=== PATIENT | male | born 1990 | race Caucasian/White ===

== ENCOUNTER 2021-04-09 21:20 | Emergency (ER) | payer OTHER, SELFPAY ==
[2021-04-09 21:46] VITALS: BP 136/86; PULSE 76; RESP 18; TEMP 36.9; O2SAT 99
[2021-04-10 00:09] VITALS: BP 137/90; PULSE 77; RESP 18; TEMP 36.8; O2SAT 100
--- NOTE | 2021-04-10 00:27 | ED_ITS ---
HPI - Dental/Oral General Chief complaint: Dental/Oral Stated complaint: dental pain Time Seen by Provider: 04/10/21 00:25 Source: RN notes reviewed History of Present Illness HPI Narrative: Patient presents emergency room from home for left lower dental pain. He states that the tooth is chipped and has been chipped for several years but the pain began approximately 3 to 4 days ago. He denies any new trauma or injury states that the tooth is eroded down to the gum states he has been trying to take Tylenol and ibuprofen at home with no relief he denies any fevers or chills states he does not have a dentist not seen a dentist states he is allergic to penicillin Related Data Allergies Allergy/AdvReac Type Severity Reaction Status Date / Time Penicillins AdvReac Hives Verified 04/10/21 00:13 Review of Systems Review of Systems: Gen.: Denies fevers or chills HEENT: See HPI Respiratory: Denies shortness of breath Neuro: Denies numbness, tingling, weakness Skin: Denies rash Endo: Denies DM PMFSH Past Medical History Medical History (Updated 04/10/21 @ 00:29 by Samuel Orantes DO) Patient denies significant medical history Social History Social History (Updated 04/10/21 @ 00:28 by Samuel Orantes DO) Smoking status: Never smoker Gender identity (if verbalized by the patient): Male Exam Narrative: APPEARANCE: No acute distress, nontoxic, resting in bed HEENT: Normocephalic, atraumatic, TMs clear bilaterally, nares patent, oral mucosa moist, airway patent, tooth #18 is carious down to the gum there is mild erythema with no fluctuance of the gum no overlying swelling of the jaw in this region RESPIRATORY: No respiratory distress MUSCULOSKELETAl: Moves all extremities. NEURO: Awake and alert. Following commands, speech normal, no focal deficits SKIN:: Warm, dry. Normal Color PSYCHIATRIC: Normal affect/mood Course Course Emergency Course: Discussed with patient results of workup and diagnosis. Discussed need for follow-up with primary care, proper use of medication, and reasons to return to the emergency department. Patient understands and agrees to current treatment plan Vital Signs Vital signs: Vital Signs Temperature 98.5 F 04/09/21 21:46 Pulse Rate 76 04/09/21 21:46 Respiratory Rate 18 04/09/21 21:46 Blood Pressure 136/86 04/09/21 21:46 Pulse Oximetry 99 04/09/21 21:46 Temperature 98.3 F 04/10/21 00:09 Pulse Rate 77 04/10/21 00:09 Respiratory Rate 18 04/10/21 00:09 Blood Pressure 137/90 04/10/21 00:09 Pulse Oximetry 100 04/10/21 00:09 Discharge Plan Discharge Clinical Impression: Dental caries, Odontalgia Patient Disposition: Home, Self-Care Condition: Stable Instructions: Antibiotic Form, Toothache (ED) Additional Instructions: Return for increasing pain fever or any other symptoms of concern Prescriptions: New ibuprofen [IBU] 600 mg tablet 600 mg PO Q6H PRN (Reason: pain) Qty: 20 RF: 0 clindamycin HCl 300 mg capsule 300 mg PO Q8H 10 Days Qty: 30 RF: 0 Follow-up/Referrals: [facility] [place] [Outside] - [address] [facility] [Outside] - 2 Days UNKNOWN,DOCTOR [Primary Care Provider] - Stand Alone Forms: Work/School Release IP Time of Disposition
[2021-04-10] MEDS: CLINDAMYCIN HCL 150 MG CAP 300 MG PO (01:05)
[2021-04-10] MEDS: HYDROcodone/acetaminophen (*CRX) 5-325 MG TABLET 1 TAB PO (01:05)
== END 2021-04-10 01:06 | disposition home or self-care (01) ==
PROVIDERS: Emergency Provider Emergency Medicine
DX: K02.9 Dental caries, unspecified (principal)
CPT/HCPCS: 99283; A9270

== ENCOUNTER 2021-07-28 09:55 | Emergency (ER) | payer OTHER, SELFPAY ==
--- NOTE | 2021-07-28 10:06 | PC.NURSE ---
Dr. Vazquez at bedside for pt assessment.
[2021-07-28 10:12] VITALS: BP 169/100; PULSE 86; RESP 16; TEMP 35.5; O2SAT 96
--- NOTE | 2021-07-28 10:38 | ED.DENTAL ---
HPI - Dental/Oral General Chief complaint: Dental/Oral Stated complaint: infected tooth Time Seen by Provider: 07/28/21 10:04 History of Present Illness HPI Narrative: Patient is a 30-year-old male who presents the ER with dental pain. Tooth #17. Has a fracture at the base of it. Developing pain going into his ear over the last day. Unsure if he has had any drainage. No facial swelling. Worse with eating and drinking. He has several chronically fractured teeth related to a accident 1 year ago. Related Data Home Medications Medication Instructions Recorded Confirmed levetiracetam PO 07/28/21 Allergies Allergy/AdvReac Type Severity Reaction Status Date / Time Penicillins AdvReac Hives Verified 07/28/21 10:11 Review of Systems Review of Systems: All systems reviewed & are unremarkable except as noted in HPI and below Constitutional: Constitutional: Denies chills, Denies fever(s) and Denies weakness ENT: Denies dysphagia, Denies nasal congestion and Denies sore throat Comments: Dental pain Respiratory: Respiratory: Denies cough and Denies dyspnea Gastrointestinal: Gastrointestinal: Denies nausea and Denies vomiting PMF Past Medical History Medical History (Updated 07/28/21 @ 10:42 by Jose Luis Gonsales MD) Patient denies significant medical history Surgical History Surgical History (Updated 07/28/21 @ 10:41 by Jose Luis Gonsales MD) No history of previous surgery Social History Social History (Updated 04/10/21 @ 00:28 by Samuel Orantes DO) Smoking status: Never smoker Gender identity (if verbalized by the patient): Male Exam Narrative: GENERAL: Well-appearing, well-nourished, and in no acute distress. HEAD: Normocephalic, atraumatic. ENT: Mucous membranes moist. Poor dentition with fractured tooth #17 without facial swelling or drainable abscess. Tender to palpation. TMs normal bilaterally. NECK: Supple. NEURO: No focal deficits. Alert and oriented x3. PSYCH: Normal mood and affect. Course Course Emergency Course: Baxter for pain here and antibiotics for home. Discussed use of dental wax over the exposed area of gum/nerve. Vital Signs Vital signs: Vital Signs Temperature 96 F L 07/28/21 10:12 Pulse Rate 86 07/28/21 10:12 Respiratory Rate 16 07/28/21 10:12 Blood Pressure 169/100 H 07/28/21 10:12 Pulse Oximetry 96 07/28/21 10:12 Temperature 96 F L 07/28/21 10:12 Pulse Rate 86 07/28/21 10:12 Respiratory Rate 16 07/28/21 10:12 Blood Pressure 169/100 H 07/28/21 10:12 Pulse Oximetry 96 07/28/21 10:12 Discharge Plan Discharge Clinical Impression: Toothache Patient Disposition: Home, Self-Care Condition: Stable Instructions: Toothache (ED) Additional Instructions: You are likely developing infection of your tooth. Take the antibiotics as prescribed. Contact your dentist for tooth extraction. Use dental wax to help cover the fractured area and prevent discomfort. Prescriptions: New clindamycin HCl 300 mg capsule 300 mg PO Q8H 7 Days Qty: 21 RF: 0 No Action levetiracetam 750 mg tablet PO RF: 0 Follow-up/Referrals: PHYSICIAN NOT ON STAFF,NONSTAFF [Primary Care Provider] - 1 Week
[2021-07-28 10:48] VITALS: RESP 16
== END 2021-07-28 10:49 | disposition home or self-care (01) ==
PROVIDERS: Emergency Provider Emergency Medicine
DX: K08.89 Other specified disorders of teeth and supporting structures (principal)
CPT/HCPCS: 99283

== ENCOUNTER 2021-10-01 | Emergency (ER) | payer OTHER, SELFPAY ==
[2021-10-01 00:05] VITALS: BP 142/83; PULSE 85; RESP 18; TEMP 36.2; O2SAT 100
--- NOTE | 2021-10-01 01:13 | ED.URI ---
HPI - URI/Sore Throat General Chief Complaint: Upper Respiratory Infection Stated Complaint: URI Time Seen by Provider: 10/01/21 00:13 History of Present Illness HPI Narrative: 31-year-old male presents to the emergency room with complaints of chronic sinus congestion, postnasal drip, productive cough, and fullness in his face. Patient states he has taken Benadryl and [id number] counter Veda-Randolph with little to no relief. Denies dizziness lightheadedness. Reports occasional headaches. Related Data Home Medications Medication Instructions Recorded Confirmed levetiracetam PO 07/28/21 Allergies Allergy/AdvReac Type Severity Reaction Status Date / Time Penicillins AdvReac Hives Verified 07/28/21 10:11 Review of Systems Review of Systems: CONSTITUTIONAL: Denies fever, chills, or sweats. EYES: Denies visual changes, redness, or discharge. ENT: Reports rhinorrhea, sinus congestion. denies sore throat or otalgia. CARDIOVASCULAR: Denies chest pain, palpitations, or edema. RESPIRATORY: Denies cough or dyspnea. GASTROINTESTINAL: Denies abdominal pain, nausea, vomiting, or diarrhea. GENITOURINARY: Denies dysuria or hematuria. SKIN: Denies rash or itching. MUSCULOSKELETAL: Denies back pain, joint pain, or myalgia. NEUROLOGIC: Denies headache, numbness, dizziness, or weakness. PSYCHIATRIC: Denies anxiety or depression. [facility] Past Medical History Medical History Patient denies significant medical history Surgical History Surgical History No history of previous surgery Social History Social History Smoking status: Never smoker Gender identity (if verbalized by the patient): Male Exam Narrative: GENERAL: Well-appearing, well-nourished, and in no acute distress. HEAD: Normocephalic, atraumatic. EYES: PERRLA and EOMI. ENT: Clear rhinorrhea posterior pharynx mildly erythematous ethmoid and maxillary sinus tenderness TMs bulging with clear fluid NECK: Supple. No adenopathy or masses. No carotid bruits or JVD CHEST: Clear to auscultation. No respiratory distress. No wheezes rales or rhonchi HEART: Regular rate and rhythm. No murmur heard. Normal peripheral pulses. ABDOMEN: Soft, nontender, nondistended, normal active bowel sounds. EXTREMITIES: Normal range of motion. No edema. SKIN: Warm, dry, no rash. NEURO: No focal deficits. Alert and oriented x3. PSYCH: Normal mood and affect. Course Vital Signs Vital signs: Vital Signs Temperature 36.2 C L 10/01/21 00:05 Pulse Rate 85 10/01/21 00:05 Respiratory Rate 18 10/01/21 00:05 Blood Pressure 142/83 H 10/01/21 00:05 Pulse Oximetry 100 10/01/21 00:05 Temperature 36.2 C L 10/01/21 00:05 Pulse Rate 85 10/01/21 00:05 Respiratory Rate 18 10/01/21 00:05 Blood Pressure 142/83 H 10/01/21 00:05 Pulse Oximetry 100 10/01/21 00:05 MDM - URI/Sore Throat Differential Diagnosis Differential diagnosis: Likely upper respiratory infection and sinusitis Medical Records Attestation: I reviewed the patient's medical records. Discharge Plan Discharge Clinical Impression: Sinusitis Qualifiers: Sinusitis location: ethmoidal Chronicity: acute Recurrence: not specified as recurrent Qualified Code(s): J01.20 - Acute ethmoidal sinusitis, unspecified Upper respiratory infection Qualifiers: URI type: unspecified URI Qualified Code(s): J06.9 - Acute upper respiratory infection, unspecified Patient Disposition: Home, Self-Care Condition: Stable Instructions: Antibiotic Form, Sinusitis (ED) Additional Instructions: Push fluids. Follow-up with PCP as needed Prescriptions: New doxycycline monohydrate 100 mg capsule 100 mg PO BID Qty: 14 RF: 0 pseudoephedrine HCl [Sudafed] 30 mg tablet 30 mg PO Q4-6H PRN (Reason: nasal congestion) Qty: 20 RF: 0 flutica
[2021-10-01 01:45] VITALS: BP 112/71; PULSE 76; RESP 16; O2SAT 97
== END 2021-10-01 01:44 | disposition home or self-care (01) ==
PROVIDERS: Emergency Provider Nurse Practitioner Family
DX: J01.20 Acute ethmoidal sinusitis, unspecified (principal); J06.9 Acute upper respiratory infection, unspecified
CPT/HCPCS: 99283

== ENCOUNTER 2022-04-20 04:08 | Emergency (ER) | payer OTHER, SELFPAY ==
--- NOTE | ~2022-04-20 | CT_ITS ---
EXAMINATION: CT facial bones w con DATE: 04/20/2022 05:34 INDICATION: Left facial swelling. TECHNIQUE: Computed tomography (CT) of the facial bones and maxillofacial region was performed with 7 5 mL Omnipaque 350 intravenous contrast. Automated exposure control and iterative reconstruction tech [employer] were employed. The dose-length product was 412.08 mGy-cm. COMPARISON: None. FINDINGS: There is left cheek soft tissue swelling. There are mildly enlarged left submandibular and left high internal jugular chain lymph nodes. There is mild mucosal thickening in the paranasal sinus es. There is leftward deviation of the nasal septum. There are carious lesions of many of the teeth. Tooth 12 is broken and demonstrates periapical lucencies with breech of the lingual and buccal cortex of the alveolar process. There is a 8 x 3 mm subperiosteal abscess adjacent to the buccal cortex. To oth 5 is broken with periapical lucencies and breech of the buccal cortex of the alveolar process. To oth 17 demonstrates a carious lesion and periapical lucencies. IMPRESSION: 1. Extensive dental disease with 8 x 3 mm subperiosteal abscess adjacent to the buccal cortex of the alveolar process of tooth 12. 2. Mild left submandibular and high internal jugular chain lymphadenopathy, likely reactive. Reviewed, dictated and finalized at location A. IMPRESSION: 1. Extensive dental disease with 8 x 3 mm subperiosteal abscess adjacent to the buccal cortex of the alveolar process of tooth 12. 2. Mild left submandibular and high internal jugular chain lymphadenopathy, lik kamari reactive.
[2022-04-20 04:12] VITALS: BP 136/76; PULSE 84; RESP 18; TEMP 36.5; O2SAT 97
--- NOTE | 2022-04-20 04:37 | ED.DENTAL ---
HPI - Dental/Oral General Chief complaint: Dental/Oral Stated complaint: Left Side Facial Swelling Time Seen by Provider: 04/20/22 04:16 History of Present Illness HPI Narrative: This is a 31-year-old male with past medical history of dental caries, who presents emergency department complaining of left-sided facial pain and swelling for the past 2 days. He states several years ago he had a molar extracted in the left maxilla. He denies known laceration or irritation to the area. He complains of 8 out of 10 left-sided facial pain, spreading to the left cheek. He denies difficulty swallowing, difficulty breathing, headache, change/loss of vision, change/loss of hearing, weakness or numbness. Related Data Home Medications Medication Instructions Recorded Confirmed levetiracetam 750 mg tablet PO 07/28/21 Allergies Allergy/AdvReac Type Severity Reaction Status Date / Time Penicillins AdvReac Hives Verified 07/28/21 10:11 Review of Systems Review of Systems: CONSTITUTIONAL: Denies fever, chills, or sweats. EYES: Denies visual changes, redness, or discharge. ENT: Left side facial swelling denies rhinorrhea, congestion, sore throat, or otalgia. CARDIOVASCULAR: Denies chest pain, palpitations, or edema. RESPIRATORY: Denies cough or dyspnea. GASTROINTESTINAL: Denies abdominal pain, nausea, vomiting, or diarrhea. GENITOURINARY: Denies dysuria or hematuria. SKIN: Denies rash or itching. MUSCULOSKELETAL: Denies back pain, joint pain, or myalgia. NEUROLOGIC: Denies headache, numbness, dizziness, or weakness. PSYCHIATRIC: Denies anxiety or depression. PMFSH Past Medical History Medical History Patient denies significant medical history Surgical History Surgical History No history of previous surgery Social History Social History Smoking status: Never smoker Gender identity (if verbalized by the patient): Male Exam Narrative: GENERAL: Well-developed, well-nourished, appears uncomfortable HEAD: Mild, tender swelling over the left maxillary sinus noted. Otherwise normocephalic, atraumatic EYES: PERRLA and EOMI. ENT: Mild erythema and swelling noted over the prior extraction site of tooth #16, nares clear, no rhinorrhea or epistaxis. Mucous membranes moist. Oropharynx without tonsillar hypertrophy exudate or other lesions. Bilateral TMs pearly vitale nonbulging. No mastoid tenderness or swelling noted NECK: Supple. No adenopathy or masses. No carotid bruits or JVD CHEST: Clear to auscultation. No respiratory distress. No wheezes rales or rhonchi HEART: Regular rate and rhythm. No murmur heard. Normal peripheral pulses. ABDOMEN: Soft, nontender, nondistended, normal active bowel sounds. EXTREMITIES: Normal range of motion. No edema. SKIN: Warm, dry, no rash. NEURO: No focal deficits. Alert and oriented x3. PSYCH: Normal mood and affect. Course Course Emergency Course: 06:45 -CT face not concerning for deep space infection of the face and is consistent with dental abscesses. Reassessed patient, he states his pain is improved and he is comfortable with discharge discussed return emergency precautions including signs/symptoms of airway compromise and sepsis. The patient voiced understanding and is comfortable with the plan. All questions answered to his satisfaction. Vital Signs Vital signs: Vital Signs Temperature 97.7 F 04/20/22 04:12 Pulse Rate 84 04/20/22 04:12 Respiratory Rate 18 04/20/22 04:12 Blood Pressure 136/76 04/20/22 04:12 Pulse Oximetry 97 04/20/22 04:12 Oxygen Delivery Room Air 04/20/22 04:12 Temperature 97.7 F 04/20/22 04:12 Pulse Rate 84 04/20/22 04:12 Respiratory Rate 18 04/20/22 04:12 Blood Pressure 136/76 04/20/22 04:12 Pulse Oximetry 97 04/20/22 04:12 Oxygen Delivery Room Air
[2022-04-20] MEDS: CLINDAMYCIN 450 MG in DEXTROSE 5% IN WATER 50 ML 106 MG IVPB (05:37)
[2022-04-20] MEDS: KETOROLAC 30 MG/ML VIAL (*BKC) IV PUSH (06:23)
[2022-04-20 07:01] VITALS: PULSE 88; RESP 16; O2SAT 98
[2022-04-20 09:13] LABS: Estimated CRCL calculation 140 ml/min; Estimated Glomerular Filt Rate > 60
== END 2022-04-20 07:02 | disposition home or self-care (01) ==
PROVIDERS: Emergency Provider Preventive Medicine Aerospace Medicine
DX: K04.7 Periapical abscess without sinus (principal)
CPT/HCPCS: 70487; 96365; 96375; 99284; J0131; J1885; Q9967

== ENCOUNTER 2022-07-25 20:09 | Emergency (ER) | payer OTHER, SELFPAY ==
[2022-07-25 20:40] VITALS: BP 131/81; PULSE 74; RESP 16; TEMP 36.5; O2SAT 98
--- NOTE | 2022-07-25 21:11 | ED.GENADULT ---
HPI - General Adult General Chief complaint: Unspecified <MARIOLA Alcaraz Last Filed: 07/25/22 21:35> Stated complaint: nausea and vomiting - needs work excuse <MARIOLA Alcaraz Last Filed: 07/25/22 21:35> Time Seen by Provider: 07/25/22 20:48 <MARIOLA Alcaraz Last Filed: 07/25/22 21:35> Source: patient <MARIOLA Alcaraz Last Filed: 07/25/22 21:35> Mode of arrival: ambulatory <MARIOLA Alcaraz Last Filed: 07/25/22 21:35> Limitations: no limitations <MARIOLA Alcaraz Last Filed: 07/25/22 21:35> History of Present Illness HPI narrative: Patient is a 31 y/o male who presents to the ED requesting a work note. Patient reports he woke up this morning and developed nausea and vomiting. He had 4 episodes of emesis at home. He was unable to get a ride to the hospital at that time. He took a nap and woke up feeling better. He did call off work today due to symptoms and would like to have a work note. He denies any persistent nausea, abdominal pain, fevers, cough or cold symptoms, diarrhea, constipation, chest pain, difficulty breathing, urinary symptoms. He states he feels fine currently. He is not vaccinated for covid or flu. <MARIOLA Alcaraz Last Filed: 07/25/22 21:35> Related Data Home medications: Home Medications Medication Instructions Recorded Confirmed levetiracetam 750 mg tablet PO 07/28/21 <MARIOLA Alcaraz Last Filed: 07/25/22 21:35> Allergies/adverse reactions: Allergies Allergy/AdvReac Type Severity Reaction Status Date / Time Penicillins AdvReac Hives Verified 07/25/22 20:43 <MARIOLA Alcaraz Last Filed: 07/25/22 21:35> Review of Systems Review of Systems: CONSTITUTIONAL: Denies fever, chills, or sweats. EYES: Denies visual changes. ENT: Denies rhinorrhea, congestion, sore throat. CARDIOVASCULAR: Denies chest pain. RESPIRATORY: Denies cough or dyspnea. GASTROINTESTINAL: Reports N/V. Denies abdominal pain, constipation, or diarrhea. GENITOURINARY: Denies dysuria or hematuria. SKIN: Denies rash or itching. MUSCULOSKELETAL: Denies back pain, joint pain, or myalgia. NEUROLOGIC: Denies headache, numbness, or weakness. <Galilea Szymanski PA-C - Last Filed: 07/25/22 21:35> All systems reviewed & are unremarkable except as noted in HPI and below <Galilea Szymanski PA-C - Last Filed: 07/25/22 21:35> [facility] Past Medical History Medical History: Medical History Patient denies significant medical history <Galilea Szymanski PA-C - Last Filed: 07/25/22 21:35> Surgical History Surgical History: Surgical History No history of previous surgery <Galilea Szymanski PA-C - Last Filed: 07/25/22 21:35> Social History Social History: Social History Smoking status: Never smoker Gender identity (if verbalized by the patient): Male <Galilea Szymanski PA-C - Last Filed: 07/25/22 21:35> Exam Narrative: GENERAL: Well appearing, obese, non-toxic, in no acute distress. HEAD: Normocephalic, atraumatic. NECK: Supple. No adenopathy, no masses. RESPIRATORY: Airway patent, respirations nonlabored. Clear to auscultation bilaterally, no rales, rhonchi, wheezing. CARDIOVASCULAR: Regular rate and rhythm without murmurs, rubs, or gallops. Peripheral pulses 2+ and equal bilaterally. ABDOMINAL: Soft, nontender, nondistended, no hepatosplenomegaly. Normoactive BS. MUSCULOSKELETAL: Moves all extremities. Strength/ROM intact without gross deformities. SKIN: Warm, dry, normal color. No rashes. NEURO: A&O X3. Speech clear. Cranial nerves II-XII grossly intact. Steady gait. No ataxic movements. PSYCHIATRIC: Appropriate mood and affect. Normal interaction. <Rac
== END 2022-07-25 21:44 | disposition home or self-care (01) ==
PROVIDERS: Emergency Provider Emergency Medicine
DX: R11.2 Nausea with vomiting, unspecified (principal)
CPT/HCPCS: 99281

== ENCOUNTER 2023-09-28 12:53 | Emergency (ER) | payer OTHER, SELFPAY ==
[2023-09-28 12:55] VITALS: BP 156/93; PULSE 97; RESP 18; TEMP 37.7; O2SAT 100
--- NOTE | 2023-09-28 15:23 | PC.NURSE ---
Pt called x2 with no response.
== END 2023-09-28 15:23 | disposition left against medical advice (07) ==
DX: R05.9 Cough, unspecified (principal)
CPT/HCPCS: 99199

== ENCOUNTER 2023-10-04 18:50 | Inpatient (IN) | payer OTHER, SELFPAY ==
--- NOTE | ~2023-10-04 | XR_ITS ---
EXAMINATION: XR chest 2V DATE: 10/04/2023 19:34 INDICATION: Shortness of breath. TECHNIQUE: Frontal and lateral views of the chest were obtained. COMPARISON: None. FINDINGS: There are airspace opacities in left lower lobe, consistent with pneumonia. No pleural effu miri or pneumothorax. The heart size is normal. IMPRESSION: 1. Left lower lobe pneumonia. Reviewed, dictated and finalized at location E. VISION PRODUCTION CLERK
--- NOTE | 2023-10-04 18:51 | ECG_ITS ---
Measurements Intervals [place] Rate: 95 P: 37 ME: 123 QRS: 62 QRSD: 94 T: 19 QT: 350 QTc: 442 Interpretive Statements SINUS RHYTHM NONSPECIFIC T-WAVE ABNORMALITY NO PREVIOUS ECG AVAILABLE FOR COMPARISON Electronically Signed On 10-05-2023 12:30:33 [employer] by James Molina M.D.
[2023-10-04 18:58] VITALS: BP 142/76; PULSE 104; RESP 22; TEMP 35.9; O2SAT 90
[2023-10-04 19:05] VITALS: O2SAT 90
[2023-10-04 19:49] VITALS: O2SAT 90; O2SAT 95
[2023-10-04 19:52] VITALS: BP 126/98; PULSE 87; RESP 18; O2SAT 94
[2023-10-04 19:52] LABS: Basophils Percent Auto 0.3 % (0.2-1.2); Hematocrit 34.9 % (42.0-52.0); Hemoglobin 10.9 g/dL (14.0-18.0); Immature Granulocyte Percent A 6.2 % (0-0.5); Lymphocytes Absolute Auto 1.34 K/mm3 (0.9-3.2); Lymphocytes Percent Auto 11.9 % (18.3-44.2); Mean Corpuscular HGB Conc 31.2 g/dl (32-36); Mean Corpuscular Hemoglobin 26.2 pg (26-34); Mean Corpuscular Volume 83.9 fl (80-100); Mean Platelet Volume 9.6 fl (7.4-10.4); Monocytes Absolute Auto 0.8 K/mm3 (0.1-0.6); Monocytes Percent Auto 7.2 % (2.6-8.5); Neutrophils Absolute Auto 8.4 K/mm3 (1.3-6.7); Neutrophils Percent Auto 74.4 % (45.5-73.1); Platelet Count Result 260 k/mm3 (150-375); Red Blood Count 4.16 M/mm3 (4.6-6.20); Red Cell Distribution Width 13.9 % (11.5-14.5); White Blood Count 11.3 K/mm3 (4.5-10.0)
[2023-10-04 20:05] LABS: Alanine Aminotransferase 35 U/L (6-50); Alkaline Phosphatase 96 U/L (38-126); Anion Gap 12 mmol/L (8-16); Aspartate Amino Transferase 68 U/L (17-59); Bilirubin,Total 0.5 mg/dL (0.2-1.3); Blood Urea Nitrogen 22 mg/dL (9-20); Calcium 8.8 mg/dL (8.4-10.2); Carbon Dioxide 25 mmol/L (22-30); Chloride 106 mmol/L (98-107); Estimated Glomerular Filt Rate > 60; Glucose 133 mg/dL (65-110); Potassium 3.9 mmol/L (3.4-5.0); Sodium 143 mmol/L (137-145)
--- NOTE | 2023-10-04 20:13 | ED.SOB ---
HPI - SOB/Dyspnea General Chief Complaint: Shortness of Breath/Dyspnea Stated Complaint: SOB Time Seen by Provider: 10/04/23 20:10 Source: patient Mode of arrival: ambulatory Limitations: no limitations History of Present Illness HPI Narrative: This is a otherwise healthy 33-year-old male who presents with report of a diagnosed pneumonia. He states over the past 1 week she has been experiencing symptoms including weakness, fevers and cough. He notes he presented to to [facility] yesterday and was diagnosed with a pneumonia and he was subsequently admitted for IV antibiotics and that he required supplemental oxygen via nasal cannula. He did not feel he was being cared for appropriately at that facility so did leave AMA this morning around 9am and went home. he does not know if he received morning doses of antibiotics. He believes they might have been started but discontinued early when he left. He denies any underlying respiratory conditions. He states he recently quit smoking 2 weeks ago prior to that was a less than half pack per day smoker. No prior episodes of pneumonia. He is not generally on an H2 martínez/ PPI at baseline but states he was receiving one of these medications while hospitalized due to some symptoms. he notes that he had been having fevers ranging from 103? F to 104? F earlier in the week for which he has been taking Tylenol and Motrin which helped. He has not had any fevers for the past few days. His cough has been productive of sputum but nonbloody. He denies any lower extremity edema. He denies any nausea, vomiting, or diarrhea. He states he was tested for COVID, influenza, and RSV to she and tested negative. In addition, he states that there was concern that he might have a pulmonary embolism but that he underwent CT testing and this was negative by report. Related Data Home Medications Medication Instructions Recorded Confirmed tizanidine 4 mg tablet 4 mg PO BID 10/04/23 10/04/23 Allergies Allergy/AdvReac Type Severity Reaction Status Date / Time Penicillins AdvReac Hives Verified 10/04/23 19:03 [facility] Past Medical History Medical History Patient denies significant medical history Surgical History Surgical History No history of previous surgery Family History Family History (Updated 10/04/23 @ 23:26 by Owen Galindo RN) Mother COPD (chronic obstructive pulmonary disease) Social History Social History (Updated 10/04/23 @ 20:59 by Nora Carrera MD) Smoking packs per day: 0.5 Smoking cigarettes per day: 10.0 Smoking status: Former smoker Smoking end date: 09/13/23 Alcohol intake: never Substance use: never Do You Feel Safe in your Home?: Yes Lack of Transportation: No Lack of Food: Never True Current Housing: I Have Housing Concerned About Future Housing: No Difficulty Paying Gas/Electric Bills: No Difficulty Paying for Meds: No Currently Unemployed: No Education: Don't Know Difficulty w/ Childcare or Family Care: No Gender identity (if verbalized by the patient): Male Spiritual care concerns: No Exam Narrative: GENERAL: Well-appearing, well-nourished, and in no acute distress. HEAD: Normocephalic, atraumatic. EYES: Non injected, non icteric ENT: Nares clear, no rhinorrhea or epistaxis. NECK: Supple. CHEST: No respiratory distress. Nonlabored breathing with no accessory muscle usage. Nasal cannula in place. Patient does have some scattered expiratory wheezes appreciable on the right not on the left. HEART: Regular rate and rhythm. . ABDOMEN: Soft, nondistended. EXTREMITIES: Normal range of motion. No edema. SKIN: Warm, dry, no rash. NEURO: No focal deficits. Alert and oriented x3. PSYCH: Normal mood and affect. Course Vital Signs Vital signs: Vital Signs Temperature 96.7 F L
--- NOTE | 2023-10-04 20:46 | PM.IMHP ---
H&P: HPI History of Present Illness Date/Time: 10/04/23 20:46 Chief Complaint: sob Narrative: This is a 33-year-old male with known significant past medical history. Patient comes to the emergency room due to generalized malaise body aches and pains chills fevers cough productive of clear phlegm patient had been at to [facility] and had been diagnosed with left lower lobe pneumonia but he left and presented to our emergency room. Preliminary workup shows chest x-ray with left lower lobe pneumonia. EXAMINATION: XR chest 2V DATE: 10/04/2023 19:34 INDICATION: Shortness of breath. TECHNIQUE: Frontal and lateral views of the chest were obtained. COMPARISON: None. FINDINGS: There are airspace opacities in left lower lobe, consistent with pneumonia. No pleural effusion or pneumothorax. The heart size is normal. IMPRESSION: 1. Left lower lobe pneumonia. Review of Systems Review of Systems: pneumonia, generalized malaise, body aches and pains, fevers, chills, cough productive of clear phlegm Constitutional: Constitutional: Reports chills, Reports fatigue, Reports fever(s), Reports malaise and Reports poor appetite Eyes: Eyes: Denies change in vision ENT: Denies dysphagia and Denies odynophagia Cardiovascular: Cardiovascular: Denies chest pain, Denies radiating jaw, neck or arm pain and Denies palpitations Respiratory: Respiratory: Reports chest congestion, Reports cough, Reports dyspnea and Reports wheezing Gastrointestinal: Gastrointestinal: Denies abdominal pain, Denies dyspepsia, Denies diarrhea, Denies nausea and Denies vomiting Genitourinary: Genitourinary: Denies dysuria Musculoskeletal: Musculoskeletal: Reports myalgias and Denies arthralgias Integumentary/Breasts: Skin/Breast: Denies rash Neurologic: Denies focal weakness and Denies Sensory deficit (Neuro) Psychiatric: Psychiatric: Reports no additional psychiatric complaints and Reports as per HPI Endocrine: Endocrine: Denies cold intolerance, Denies flushing, Denies heat intolerance, Denies polyphagia, Denies polydipsia and Denies palpitations Hematologic/Lymphatic: Hematologic/Lymphatic: Reports no additional hematologic/lymphatic complaints and Reports as per HPI Allergic/Immunologic: Allergic/Immunologic: Reports no additional allergic/immunologic complaints and Reports as per HPI [facility] Past Medical History Medical History Patient denies significant medical history Surgical History Surgical History No history of previous surgery Family History Family History (Updated 10/04/23 @ 23:26 by Owen Galindo RN) Mother COPD (chronic obstructive pulmonary disease) Social History Social History (Updated 10/04/23 @ 20:59 by Nora Carrera MD) Smoking packs per day: 0.5 Smoking cigarettes per day: 10.0 Smoking status: Former smoker Smoking end date: 09/13/23 Alcohol intake: never Substance use: never Do You Feel Safe in your Home?: Yes Lack of Transportation: No Lack of Food: Never True Current Housing: I Have Housing Concerned About Future Housing: No Difficulty Paying Gas/Electric Bills: No Difficulty Paying for Meds: No Currently Unemployed: No Education: Don't Know Difficulty w/ Childcare or Family Care: No Gender identity (if verbalized by the patient): Male Spiritual care concerns: No Meds Home Medications and Allergies Home Medications Medication Instructions Recorded Confirmed Type acetaminophen 500 mg capsule 1,000 mg PO Q8H PRN fever or pain 04/20/22 10/04/23 Rx #60 caps tizanidine 4 mg tablet 4 mg PO BID 10/04/23 10/04/23 History Allergies Allergy/AdvReac Type Severity Reaction Status Date / Time Penicillins AdvReac Hives Verified 10/04/23 19:03 Vital Signs Vital Signs - 24 hr 10/04/23 18:58 10/04/23 19:05 10/04/23 19
[2023-10-04] MEDS: DOXYCYCLINE HYCLATE 100 MG TABLET PO (20:54)
[2023-10-04 21:16] LABS: Influenza A QL RT-PCR Negative (Negative); Influenza B QL RT-PCR Negative (Negative); RSV RNA, RT-PCR Negative (Negative); SARS-CoV-2 RNA PCR Negative (Negative)
[2023-10-04 23:20] VITALS: BP 146/98; PULSE 90; RESP 20; TEMP 35.7; O2SAT 94
--- NOTE | 2023-10-04 23:24 | ADMGEN ---
This patient, Vitaliy Pemberton, was admitted to [facility] Surg Room 326-01. Patient/family oriented to hospital policies and general routines including ID bracelet, bed and alarms, visiting hours, pain management, procedures, bathroom and other care routines, personal items, smoking policy, room service/diet, and visiting hours. Information on how to activate the Rapid Response Team has been discussed. Patient/Family are encouraged to report perceived risks to care and to ask questions if they do not understand what they are told or what they should do.
[2023-10-04 23:37] VITALS: O2SAT 97
[2023-10-05] VITALS (13 sets, daily range): BP systolic 114–139; BP diastolic 71–88; PULSE 57–88; RESP 16–20; TEMP 35.7–36.6; O2SAT 91–95
--- NOTE | 2023-10-05 02:56 | PC.NURSE ---
Pt records from [facility] placed in paper chart.
--- NOTE | 2023-10-05 08:03 | P.PNIM_ITS ---
Progress Note: A&P Assessment and Plan (1) Left lower lobe pneumonia: Qualifiers: Pneumonia type: due to unspecified organism Qualified Code(s): J18.9 - Pneumonia, unspecified organism Code(s): J18.9 - Pneumonia, unspecified organism Status: Acute (2) Leukocytosis: Qualifiers: Leukocytosis type: unspecified Qualified Code(s): D72.829 - Elevated white blood cell count, unspecified Code(s): D72.829 - Elevated white blood cell count, unspecified Status: Acute (3) Acute respiratory failure with hypoxia: Code(s): J96.01 - Acute respiratory failure with hypoxia Status: Acute (4) GERD (gastroesophageal reflux disease): Code(s): K21.9 - Gastro-esophageal reflux disease without esophagitis Status: Acute Plan Acute respiratory failure with hypoxia secondary to pneumonia * Antibiotic therapy to cover for possible gram -/+ bacterial PNA * LLL on chest Xray * SpO2 90 on room air * Wean supplemental oxygen therapy to maintain oxygen above 92% * DuoNebs Pneumonia * Bronchodilators. * Chest x-ray * incentive spirometry while awake. * Mucolytics * Antipyretics * sputum culture ordered * influenza/COVID/RSV negative * respiratory panel pending * Antibiotic therapy to cover for possible gram -/+ bacterial PNA * supplemental oxygen therapy to maintain oxygen 92% * monitor for signs of in sepsis * Smoking cessation counseling done (Quit 2 weeks ago) * CMP/CBC daily GERD * home medication added PPI Code status: Full code per patient DVT prophylaxis: Lovenox Stress ulcer prophylaxis: Protonix 40 daily PT/OT notes: Ambulatory Disposition: Patient continues admission to the medical unit for acute respiratory failure with hypoxia secondary to pneumonia, will continue with current treatment plan and the oxygen as tolerated patient is ambulatory and return to home when medically stable. Time Spent With Patient Time with patient: 25 - 35 minutes Subjective Date/time seen: 10/05/23 08:03 Interval history: H&P (Medical Record) This is a 33-year-old male with known significant past medical history.? Patient comes to the emergency room due to generalized malaise body aches and pains chills fevers cough productive of clear phlegm patient had been at to [facility] and had been diagnosed with left lower lobe pneumonia but he left? and presented to our emergency room.? Preliminary workup shows chest x-ray with left lower lobe pneumonia. 10/05: Patient continues to have complaints of SOB, productive cough, body aches, and generalized weakness. Inspiratory wheezing throughout and diminished LLL. Patient did report he stopped smoking 1.5 weeks ago likely cause of some of patient productive cough. Will continue on ABX therapy, sputum culture ordered, guaifenesin and duonebs started currently on 2L NC supplemental O2 will wean as tolerated. Review of Systems Review of Systems: All systems reviewed & are unremarkable except as noted in HPI and below Exam Narrative: Physical Exam: * GENERAL: Alert and oriented x 3. No acute distress. Well-nourished. * EYES: EOMI. No scleral icterus. PERRLA. * HEENT: Moist mucous membranes. No cervical lymphadenopathy. * LUNGS: wheezing throughout on auscultation with diminished LLL. No accessory muscle use. Productive cough noted * CARDIOVASCULAR: Regular rate and rhythm. No murmur. No JVD. S1-S2 * ABDOMEN: Soft,
--- NOTE | 2023-10-05 08:03 | PM.IMPN ---
Progress Note: A&P Assessment and Plan (1) Left lower lobe pneumonia: Qualifiers: Pneumonia type: due to unspecified organism Qualified Code(s): J18.9 - Pneumonia, unspecified organism Code(s): J18.9 - Pneumonia, unspecified organism Status: Acute (2) Leukocytosis: Qualifiers: Leukocytosis type: unspecified Qualified Code(s): D72.829 - Elevated white blood cell count, unspecified Code(s): D72.829 - Elevated white blood cell count, unspecified Status: Acute (3) Acute respiratory failure with hypoxia: Code(s): J96.01 - Acute respiratory failure with hypoxia Status: Acute (4) GERD (gastroesophageal reflux disease): Code(s): K21.9 - Gastro-esophageal reflux disease without esophagitis Status: Acute Plan Acute respiratory failure with hypoxia secondary to pneumonia Antibiotic therapy to cover for possible gram -/+ bacterial PNA LLL on chest Xray SpO2 90 on room air Wean supplemental oxygen therapy to maintain oxygen above 92% DuoNebs Pneumonia Bronchodilators. Chest x-ray incentive spirometry while awake. Mucolytics Antipyretics sputum culture ordered influenza/COVID/RSV negative respiratory panel pending Antibiotic therapy to cover for possible gram -/+ bacterial PNA supplemental oxygen therapy to maintain oxygen 92% monitor for signs of in sepsis Smoking cessation counseling done (Quit 2 weeks ago) CMP/CBC daily GERD home medication added PPI Code status: Full code per patient DVT prophylaxis: Lovenox Stress ulcer prophylaxis: Protonix 40 daily PT/OT notes: Ambulatory Disposition: Patient continues admission to the medical unit for acute respiratory failure with hypoxia secondary to pneumonia, will continue with current treatment plan and the oxygen as tolerated patient is ambulatory and return to home when medically stable. Time Spent With Patient Time with patient: 25 - 35 minutes Subjective Date/time seen: 10/05/23 08:03 Interval history: H&P (Medical Record) This is a 33-year-old male with known significant past medical history.? Patient comes to the emergency room due to generalized malaise body aches and pains chills fevers cough productive of clear phlegm patient had been at to [facility] and had been diagnosed with left lower lobe pneumonia but he left? and presented to our emergency room.? Preliminary workup shows chest x-ray with left lower lobe pneumonia. 10/05: Patient continues to have complaints of SOB, productive cough, body aches, and generalized weakness. Inspiratory wheezing throughout and diminished LLL. Patient did report he stopped smoking 1.5 weeks ago likely cause of some of patient productive cough. Will continue on ABX therapy, sputum culture ordered, guaifenesin and duonebs started currently on 2L NC supplemental O2 will wean as tolerated. Review of Systems Review of Systems: All systems reviewed & are unremarkable except as noted in HPI and below Exam Narrative: Physical Exam: GENERAL: Alert and oriented x 3. No acute distress. Well-nourished. EYES: EOMI. No scleral icterus. PERRLA. HEENT: Moist mucous membranes. No cervical lymphadenopathy. LUNGS: wheezing throughout on auscultation with diminished LLL. No accessory muscle use. Productive cough noted CARDIOVASCULAR: Regular rate and rhythm. No murmur. No JVD. S1-S2 ABDOMEN: Soft, mild tenderness and non-distended. No palpable masses. EXTREMITIES: No edema. Non-tender SKIN: No rashes or lesions. Skin warm, dry. NEUROLOGIC: No focal neurological deficits. CN II-XII grossly intact PSYCHIATRIC: Appropriate mood and affect. Good judgement and insight. No visual or auditory hallucinations. No suicidal or homicidal ideation. Objective Data Vital Signs Vital Signs: Vital Signs - 24 hr 10/04/23 18:58 10/04/23 19:05 10/04/23 19:49 Temperature 96.7 F L Pulse Rate 104 H
[2023-10-05 08:31] LABS: Hematocrit 36.6 % (42.0-52.0); Hemoglobin 11.6 g/dL (14.0-18.0); Mean Corpuscular HGB Conc 31.7 g/dl (32-36); Mean Corpuscular Hemoglobin 26.4 pg (26-34); Mean Corpuscular Volume 83.2 fl (80-100); Mean Platelet Volume 9.5 fl (7.4-10.4); Platelet Count Result 276 k/mm3 (150-375); White Blood Count 10.8 K/mm3 (4.5-10.0)
[2023-10-05 08:42] LABS: Alanine Aminotransferase 40 U/L (6-50); Albumin Level 4.1 g/dL (3.5-5.1); Alkaline Phosphatase 106 U/L (38-126); Anion Gap 8 mmol/L (8-16); Aspartate Amino Transferase 73 U/L (17-59); Bilirubin,Total 0.5 mg/dL (0.2-1.3); Blood Urea Nitrogen 21 mg/dL (9-20); Calcium 8.9 mg/dL (8.4-10.2); Carbon Dioxide 28 mmol/L (22-30); Chloride 105 mmol/L (98-107); Estimated Glomerular Filt Rate > 60; Glucose 104 mg/dL (65-110); Magnesium 2.3 mg/dL (1.6-2.3); Potassium 4.4 mmol/L (3.4-5.0); Sodium 141 mmol/L (137-145)
[2023-10-05] MEDS: PANTOPRAZOLE 40 MG TABLET PO (10:38)
[2023-10-05] MEDS: ENOXAPARIN 40 MG/0.4 ML SYRINGE SUB-Q (10:38)
[2023-10-05] MEDS: guaiFENesin 12 HR 600 MG TABCR 1200 MG PO ×2 (10:38→21:31)
[2023-10-05] MEDS: TIZANIDINE HCL 4 MG TABLET PO ×2 (10:38→17:37)
[2023-10-05] MEDS: IPRATROPIUM 0.5 MG/ALBUTEROL SULFATE 2.5 MG AMPUL.NEB 3 ML INHALATION ×2 (13:30→21:09)
--- NOTE | 2023-10-05 20:09 | PC.NURSE ---
On 10/05/23, the RADIATION CONTROL SPECIALIST, Pebbles, provided care and [facility]. I have reviewed the RADIATION CONTROL SPECIALIST's documentation and agree with the findings.
[2023-10-05] MEDS: DOXYCYCLINE 100 MG/NS 100 ML 100 MG/100 ML BAG IVPB (21:32)
[2023-10-06] VITALS (8 sets, daily range): BP systolic 126; BP diastolic 88; PULSE 61–83; RESP 18; TEMP 36; O2SAT 92–97
--- NOTE | 2023-10-06 02:45 | PCRCNOTE ---
Patient refused his 0200 updraft treatment due to wanting sleep. Treatment will resume at 0800.
[2023-10-06 06:24] LABS: Hematocrit 36.6 % (42.0-52.0); Hemoglobin 11.3 g/dL (14.0-18.0); Mean Corpuscular HGB Conc 30.9 g/dl (32-36); Mean Corpuscular Hemoglobin 26.2 pg (26-34); Mean Corpuscular Volume 84.9 fl (80-100); Mean Platelet Volume 9.6 fl (7.4-10.4); Platelet Count Result 239 k/mm3 (150-375); Red Blood Count 4.31 M/mm3 (4.6-6.20); Red Cell Distribution Width 13.8 % (11.5-14.5); White Blood Count 6.3 K/mm3 (4.5-10.0)
[2023-10-06 06:46] LABS: Alanine Aminotransferase 36 U/L (6-50); Albumin Level 3.7 g/dL (3.5-5.1); Alkaline Phosphatase 103 U/L (38-126); Anion Gap 6 mmol/L (8-16); Aspartate Amino Transferase 51 U/L (17-59); Bilirubin,Total 0.4 mg/dL (0.2-1.3); Blood Urea Nitrogen 19 mg/dL (9-20); Calcium 8.4 mg/dL (8.4-10.2); Carbon Dioxide 29 mmol/L (22-30); Chloride 105 mmol/L (98-107); Estimated Glomerular Filt Rate > 60; Glucose 101 mg/dL (65-110); Potassium 4.1 mmol/L (3.4-5.0); Sodium 140 mmol/L (137-145)
[2023-10-06] MEDS: IPRATROPIUM 0.5 MG/ALBUTEROL SULFATE 2.5 MG AMPUL.NEB 3 ML INHALATION (07:37)
[2023-10-06] MEDS: ENOXAPARIN 40 MG/0.4 ML SYRINGE SUB-Q (09:16)
[2023-10-06] MEDS: DOXYCYCLINE 100 MG/NS 100 ML 100 MG/100 ML BAG IVPB (09:16)
[2023-10-06] MEDS: PANTOPRAZOLE 40 MG TABLET PO (09:17)
[2023-10-06] MEDS: guaiFENesin 12 HR 600 MG TABCR 1200 MG PO (09:17)
[2023-10-06] MEDS: TIZANIDINE HCL 4 MG TABLET PO (09:17)
--- NOTE | 2023-10-06 11:06 | P.DS_ITS ---
DS: Admitting Diagnosis Discharge Date 10/06/2023 Admitting Diagnosis Acute respiratory failure with hypoxia secondary to pneumonia DS: Discharge Diagnosis Discharge Diagnosis (1) Left lower lobe pneumonia: Qualifiers: Pneumonia type: due to unspecified organism Qualified Code(s): J18.9 - Pneumonia, unspecified organism Code(s): J18.9 - Pneumonia, unspecified organism Status: Acute (2) Leukocytosis: Qualifiers: Leukocytosis type: unspecified Qualified Code(s): D72.829 - Elevated white blood cell count, unspecified Code(s): D72.829 - Elevated white blood cell count, unspecified Status: Acute (3) Acute respiratory failure with hypoxia: Code(s): J96.01 - Acute respiratory failure with hypoxia Status: Acute (4) GERD (gastroesophageal reflux disease): Code(s): K21.9 - Gastro-esophageal reflux disease without esophagitis Status: Acute Plan Plan Acute respiratory failure with hypoxia secondary to pneumonia * Antibiotic therapy to cover for possible gram -/+ bacterial PNA * LLL on chest Xray * SpO2 90 on room air * Wean supplemental oxygen therapy to maintain oxygen above 92% * DuoNebs Pneumonia * ?Bronchodilators.? * Chest x-ray * incentive spirometry while awake.? * Mucolytics * Antipyretics * sputum culture ordered * influenza/COVID/RSV negative * respiratory panel pending * Antibiotic therapy to cover for possible gram -/+ bacterial PNA * supplemental oxygen therapy to maintain oxygen 92% * monitor for signs of in sepsis * Smoking cessation counseling done (Quit 2 weeks ago) * CMP/CBC daily GERD * home medication added PPI Disposition: Patient discharged to home ambulatory with PO ABX therapy and supportive care at home for pneumonia Pneumonia/POST discharge * Encourage activity as tolerated * Continue using incentive spirometer * Finish antibiotic therapy as directed * Acetaminophen p.r.n. for fevers and body aches * IF symptoms such as shortness breath worsen please seek medical attention * continue with smoking cessation DS: Summary Hospital Course Reason for hospitalization: Acute respiratory failure with hypoxia secondary to pn Hospital Course: H&P (Medical Record) This is a 33-year-old male with known significant past medical history.? Patient comes to the emergency room due to generalized malaise body aches and pains chills fevers cough productive of clear phlegm patient had been at to [facility] and had been diagnosed with left lower lobe pneumonia but he left? and presented to our emergency room.? Preliminary workup shows chest x-ray with left lower lobe pneumonia. 10/05: Patient continues to have complaints of SOB, productive cough, body aches, and generalized weakness.? Inspiratory wheezing throughout and diminished LLL.? Patient did report he stopped smoking 1.5 weeks ago likely cause of some of patient productive cough.? Will continue on ABX therapy, sputum culture ordered, guaifenesin and duonebs started currently on 2L NC supplemental O2 will wean as tolerated. 10/06: Patient off oxygen, afebrile overnight, and normal WBC. Pateint reported feeling better and felt close to baseline. Patient is ambulatory on own and was discharged home with ABX therapy and supportive care for PNA Status at Discharge Functional status at discharge: independent ambulation Overall status at discharge: patient is progressing back to baseline Time Spent with Patient Time attestation: Total ti
--- NOTE | 2023-10-06 11:06 | PM.DS ---
DS: Admitting Diagnosis Discharge Date 10/06/2023 Admitting Diagnosis Acute respiratory failure with hypoxia secondary to pneumonia DS: Discharge Diagnosis Discharge Diagnosis (1) Left lower lobe pneumonia: Qualifiers: Pneumonia type: due to unspecified organism Qualified Code(s): J18.9 - Pneumonia, unspecified organism Code(s): J18.9 - Pneumonia, unspecified organism Status: Acute (2) Leukocytosis: Qualifiers: Leukocytosis type: unspecified Qualified Code(s): D72.829 - Elevated white blood cell count, unspecified Code(s): D72.829 - Elevated white blood cell count, unspecified Status: Acute (3) Acute respiratory failure with hypoxia: Code(s): J96.01 - Acute respiratory failure with hypoxia Status: Acute (4) GERD (gastroesophageal reflux disease): Code(s): K21.9 - Gastro-esophageal reflux disease without esophagitis Status: Acute Plan Plan Acute respiratory failure with hypoxia secondary to pneumonia Antibiotic therapy to cover for possible gram -/+ bacterial PNA LLL on chest Xray SpO2 90 on room air Wean supplemental oxygen therapy to maintain oxygen above 92% DuoNebs Pneumonia ?Bronchodilators.? Chest x-ray incentive spirometry while awake.? Mucolytics Antipyretics sputum culture ordered influenza/COVID/RSV negative respiratory panel pending Antibiotic therapy to cover for possible gram -/+ bacterial PNA supplemental oxygen therapy to maintain oxygen 92% monitor for signs of in sepsis Smoking cessation counseling done (Quit 2 weeks ago) CMP/CBC daily GERD home medication added PPI Disposition: Patient discharged to home ambulatory with PO ABX therapy and supportive care at home for pneumonia Pneumonia/POST discharge Encourage activity as tolerated Continue using incentive spirometer Finish antibiotic therapy as directed Acetaminophen p.r.n. for fevers and body aches IF symptoms such as shortness breath worsen please seek medical attention continue with smoking cessation DS: Summary Hospital Course Reason for hospitalization: Acute respiratory failure with hypoxia secondary to pn Hospital Course: H&P (Medical Record) This is a 33-year-old male with known significant past medical history.? Patient comes to the emergency room due to generalized malaise body aches and pains chills fevers cough productive of clear phlegm patient had been at to [facility] and had been diagnosed with left lower lobe pneumonia but he left? and presented to our emergency room.? Preliminary workup shows chest x-ray with left lower lobe pneumonia. 10/05: Patient continues to have complaints of SOB, productive cough, body aches, and generalized weakness.? Inspiratory wheezing throughout and diminished LLL.? Patient did report he stopped smoking 1.5 weeks ago likely cause of some of patient productive cough.? Will continue on ABX therapy, sputum culture ordered, guaifenesin and duonebs started currently on 2L NC supplemental O2 will wean as tolerated. 10/06: Patient off oxygen, afebrile overnight, and normal WBC. Pateint reported feeling better and felt close to baseline. Patient is ambulatory on own and was discharged home with ABX therapy and supportive care for PNA Status at Discharge Functional status at discharge: independent ambulation Overall status at discharge: patient is progressing back to baseline Time Spent with Patient Time attestation: Total time spent providing and/or coordinating discharge services: Time spent: Less than 30 minutes Exam Narrative: Physical Exam: GENERAL: Alert and oriented x 3. No acute distress. Well-nourished. EYES: EOMI. No scleral icterus. PERRLA. HEENT: Moist mucous membranes. No cervical lymphadenopathy. LUNGS: wheezing throughout on auscultation with diminished LLL. No accessory muscle use. Productive cough noted CARDIOVASCULAR: Regular rate and rhythm
== END 2023-10-06 11:30 | disposition home or self-care (01) | DRG 139 ==
LOC: ANHED 21:06 → ANH3MEDSUR 22:41
PROVIDERS: Emergency Medicine; Admitting Provider Internal Medicine; Emergency Provider Student in an Organized Health Care Education/Training Program; Visit Provider Nurse Practitioner Family
DX: J18.9 Pneumonia, unspecified organism (principal); J96.01 Acute respiratory failure with hypoxia; B37.0 Candidal stomatitis; K21.9 Gastro-esophageal reflux disease without esophagitis; Z20.822 Contact with and (suspected) exposure to COVID-19; Z87.891 Personal history of nicotine dependence
CPT/HCPCS: 36415; 71046; 80053; 83735; 85025; 85027; 87070; 87205; 87637; 93005; 94640; 99285; A9270; J0696; J1650

== ENCOUNTER 2024-07-09 19:49 | Emergency (ER) | payer OTHER, SELFPAY ==
--- NOTE | ~2024-07-09 | XR_ITS ---
EXAMINATION: XR chest 2V DATE: 07/09/2024 20:04 INDICATION: 2 weeks of cough TECHNIQUE: PA and lateral views of the chest were obtained. COMPARISON: Chest radiograph dated 10/04/2023 FINDINGS: There are a couple residual linear opacities at the medial left lung base consistent with prior pneum onias represent residual atelectasis/scarring. No other airspace opacities, pulmonary edema, pleural effusion or pneumothorax. The cardiomediastinal silhouette is normal. Visualized bones and soft tissu es are unremarkable. IMPRESSION: 1. Residual discoid atelectasis/scarring at the medial left lung base at the site of prior and since resolved left lower lobar pneumonia. Reviewed, dictated and finalized at location A. HOUSE HAND IMPRESSION: 1. Residual discoid atelectasis/scarring at the medial left lung base at the si te of prior and since resolved left lower lobar pneumonia.
[2024-07-09 19:50] VITALS: BP 136/71; PULSE 94; RESP 16; TEMP 36.6; O2SAT 99
[2024-07-09 21:03] LABS: Influenza A QL RT-PCR Negative (Negative); Influenza B QL RT-PCR Negative (Negative); RSV RNA, RT-PCR Negative (Negative); SARS-CoV-2 RNA PCR Negative (Negative)
[2024-07-09 23:00] VITALS: BP 140/76; PULSE 99; RESP 20; O2SAT 94
[2024-07-09 23:27] VITALS: O2SAT 99
== END 2024-07-09 23:30 | disposition left against medical advice (07) ==
LOC: ANHED 23:28
PROVIDERS: Emergency Provider Emergency Medicine
DX: R05.9 Cough, unspecified (principal); Z20.822 Contact with and (suspected) exposure to COVID-19
CPT/HCPCS: 71046; 87637; 99199